=== PATIENT | female | born 1970 | race African-American/Black ===

== ENCOUNTER → 2019-12-21 14:57 | Outpatient (CLI) | payer BC, SELFPAY ==
--- NOTE | ~2019-12-21 | CT_ITS ---
EXAMINATION: CT soft tissue neck w con EXAM DATE: 12/21/2019 15:27 INDICATION: Enlarged lymph nodes. TECHNIQUE: Spiral CT of the neck was performed following intravenous injection of 75 mL Omnipaque 350 . Axial, coronal and sagittal images were reviewed. The dose-length product (DLP) for this examinat ion was 407.19 mGy-cm. The exposure was tailored according to patient size (auto mA exposure control ), and iterative reconstruction (ASIR) was used as additional dose reduction technique. There is no prior study for comparison. FINDINGS: The thyroid gland is unremarkable. The submandibular and parotid glands are symmetric. There is no cervical lymphadenopathy. There are no masses identified. The superior mediastinum is unremarkable. The airway is unremarkable. Parapharyngeal and pre-glottic fat planes are preserve d. The opacified vasculature is patent. The orbits are unremarkable. Visualized sinuses and mas toid air cells are well aerated. Unremarkable bones. There is moderate disc disease at C5-6. Other stephen mild cervical spondylosis. IMPRESSION: Unremarkable CT neck exam. Reviewed, dictated and finalized at location A. IMPRESSION: Unremarkable CT neck exam.
== END ==
PROVIDERS: PCP Internal Medicine; Visit Provider Internal Medicine
DX: R59.1 Generalized enlarged lymph nodes (principal)
CPT/HCPCS: 70491; Q9967

== ENCOUNTER 2020-05-25 07:27 | Outpatient (CLI) | payer BC, SELFPAY ==
--- NOTE | ~2020-05-25 | MM_ITS ---
EXAMINATION: MM screening elvira BI w perla HISTORY: Screening TECHNIQUE: Craniocaudal and mediolateral oblique 3-D tomosynthesis images were obtained and synthetic 2-D images were generated. CAD analysis was submitted and interpreted. COMPARISON: Comparison to multiple prior studies sequentially, with oldest reviewed study dated 09/2012. BREAST PARENCHYMAL COMPOSITION: Breast composed of scattered areas of fibroglandular density FINDINGS: There is developing focal asymmetry lower outer quadrant of the left breast. The right camryn st is stable without evidence for malignancy. IMPRESSION: 1. Developing left breast asymmetry, lower outer quadrant. 2. Additional mammographic views and possible breast ultrasound are recommended. BI-RADS Category 0: Incomplete: Needs additional imaging evaluation. Reviewed, dictated and finalized at location A. AL GIVING OFFICER IMPRESSION: 1. Developing left breast asymmetry, lower outer quadrant. 2. Additional mammographic views and possible breast ultrasound are recommended . BI-RADS Category 0: Incomplete: Needs additional imaging evaluation.
== END 2020-05-25 07:28 | disposition home or self-care (01) ==
LOC: ANHIMG 07:32
PROVIDERS: PCP Internal Medicine; Visit Provider Nurse Practitioner
DX: Z12.31 Encounter for screening mammogram for malignant neoplasm of breast (principal); R92.8 Other abnormal and inconclusive findings on diagnostic imaging of breast
CPT/HCPCS: 77063; 77067

== ENCOUNTER 2020-06-21 11:31 | Outpatient (CLI) | payer BC, SELFPAY ==
--- NOTE | ~2020-06-21 | MMUS_ITS ---
EXAMINATION: MM diagnostic mammo unilat LT, US breast LT limited HISTORY: Left breast asymmetry on screening mammogram TECHNIQUE: Additional 3-D tomosynthesis images of the left breast were performed and synthetic 2-D im ages were generated. CAD analysis was submitted and interpreted. High resolution limited left breast ultrasound was performed. COMPARISON: 05/25/2020, 05/22/2017, 04/25/2016, 04/29/2015 , 06/21/2012 FINDINGS: MAMMOGRAPHIC FINDINGS: There is a return to baseline fibroglandular appearance with spot compression of the lower left breas t. No suspicious mass, calcification, or architectural distortion are identified. ULTRASOUND: There is a 3 mm oval, circumscribed, parallel, hypoechoic mass with no posterior features or internal vascularity at the 5:00 location 2 cm from the nipple. IMPRESSION: 1. Probably benign sonographically detected left breast mass. 2. Recommend 6 month follow-up targeted left breast ultrasound. BI-RADS category 3, probably benign findings. Reviewed, dictated and finalized at location A. IRER ART OBJECTS IMPRESSION: 1. Probably benign sonographically detected left breast mass. 2. Recommend 6 month follow-up targeted left breast ultrasound. BI-RADS category 3, probably benign findings.
== END 2020-06-21 11:32 | disposition home or self-care (01) ==
LOC: ANHIMG 11:33
PROVIDERS: PCP Internal Medicine; Visit Provider Obstetrics & Gynecology Gynecology
DX: R92.8 Other abnormal and inconclusive findings on diagnostic imaging of breast (principal)
CPT/HCPCS: 76642; 77065

== ENCOUNTER → 2021-09-10 15:08 | Outpatient (CLI) | payer BC, SELFPAY ==
--- NOTE | ~2021-09-10 | US_ITS ---
EXAMINATION: US carotid duplex BI DATE: 09/10/2021 15:38 INDICATION: Carotid bruit. Carotid atherosclerosis and stenosis. TECHNIQUE: Grayscale, color Doppler, and pulsed Doppler images of the cervical carotid arteries were obtained. The degree of vessel stenosis is placed in one of the following categories: normal, <50%, 5 0-69%, >=70% but less than near-occlusion, near-occlusion, or total occlusion. Note that percent sten osis relative to normal distal artery lumen diameter is indirectly measured from velocity measurement s as described by Amilcar, et al. Radiology 2003; 229:340-346. COMPARISON: None. FINDINGS: RIGHT: The right common carotid artery (CCA) peak systolic velocity (PSV) is 94 cm/s. The right internal car otid artery (ICA) PSV is 111 cm/s. The right ICA end-diastolic velocity (EDV) is 52 cm/s. The right I CA/CCA PSV ratio is 1.2. Grayscale and color Doppler images yield an estimate of <50% diameter reduct ion from minimal plaque in the ICA. The external carotid artery (ECA) PSV is 61 cm/s. There is antegr clifton flow in the right vertebral artery. LEFT: The left CCA PSV is 115 cm/s. The left ICA PSV is 162 cm/s. The left ICA EDV is 73 cm/s. The left ICA /CCA PSV ratio is 1.4. Grayscale and color Doppler images yield an estimate of 50-69% diameter reduct ion from plaque in the ICA. The ECA PSV is 73 cm/s. There is antegrade flow in the left vertebral art aly. IMPRESSION: 1. <50% stenosis in the right internal carotid artery. 2. 50-69% stenosis in the left internal carotid artery. Reviewed, dictated and finalized at location B.
== END ==
PROVIDERS: PCP Internal Medicine; Visit Provider Internal Medicine
DX: R09.89 Other specified symptoms and signs involving the circulatory and respiratory systems (principal); I65.23 Occlusion and stenosis of bilateral carotid arteries
CPT/HCPCS: 93880

== ENCOUNTER → 2021-09-18 13:23 | Outpatient (CLI) | payer BC, SELFPAY ==
--- NOTE | ~2021-09-18 | CT_ITS ---
EXAMINATION: CTA neck DATE: 09/18/2021 14:07 INDICATION: Occlusion and stenosis of unspecified coronary artery. TECHNIQUE: Computed tomographic angiography (CTA) of the neck was performed with 100 mL Omnipaque-350 intravenous contrast. Automated exposure control and iterative reconstruction technique were employe d. The dose-length product was 532.00 mGy-cm. Maximum intensity projection 3D-reconstructions were cr eated by the technologist on a separate workstation. COMPARISON: Neck CT 12/21/2019 FINDINGS: There are no pathologically enlarged lymph nodes. The vertebral arteries are codominant. Th ere is no significant stenosis of the vertebral arteries. The cervical internal carotid arteries demo nstrate undulation of their staton, consistent with fibromuscular dysplasia. There is 0% stenosis of t he proximal right internal carotid artery relative to normal distal artery lumen diameter (NASCET cri teria). There is 0% stenosis of the proximal left internal carotid artery relative to normal distal a rtery lumen diameter. There is moderate spondylosis at C5-C6. IMPRESSION: 1. 0% stenosis of the proximal internal carotid arteries relative to normal distal artery lumen diame ters (NASCET criteria). 2. Fibromuscular dysplasia involving the internal carotid arteries. Reviewed, dictated and finalized at location A. IMPRESSION: 1. 0% stenosis of the proximal internal carotid arteries relative to normal dis saurav artery lumen diameters (NASCET criteria). 2. Fibromuscular dysplasia involving the internal carotid arteries.
[2021-09-18 13:43] LABS: Estimated Glomerular Filt Rate > 60
== END ==
PROVIDERS: PCP Internal Medicine; Visit Provider Internal Medicine
DX: I65.29 Occlusion and stenosis of unspecified carotid artery (principal); R09.89 Other specified symptoms and signs involving the circulatory and respiratory systems; I77.3 Arterial fibromuscular dysplasia
CPT/HCPCS: 70498; Q9967

== ENCOUNTER 2021-09-23 14:38 | Outpatient (CLI) | payer BC, SELFPAY ==
--- NOTE | ~2021-09-23 | CT_ITS ---
EXAMINATION: CTA chest abdomen pelvis DATE: 09/23/2021 15:06 INDICATION: Arterial fibromuscular dysplasia TECHNIQUE: Computed tomographic angiography (CTA) of the chest, abdomen, and pelvis was performed wit hout and with 100 mL Omnipaque-300 intravenous contrast. Volume-rendered 3D-reconstructions of the ao rta and large arteries were constructed by the technologist on a separate workstation. Automated expo sure control and iterative reconstruction technique were employed. The dose-length product was 1005.9 4 mGy-cm. COMPARISON: CT abdomen and pelvis dated 04/14/2018 FINDINGS: Chest: Unchanged small region of tree-in-bud opacity in the right middle lobe including a couple small calci fied pulmonary nodules likely sequela of chronic infection. No new airspace opacities, pulmonary dirk a or pleural effusion. Heart size is normal. No pericardial or pleural effusion. A few calcified left hilar lymph nodes consistent with old granulomatous disease. Thoracic aorta is normal in caliber wit h no dissection. The the arteries arising from the aortic arch similarly appear normal with no stenos is or dissection. No pathologically enlarged thoracic lymphadenopathy. Mild thoracic spondylosis. Abdomen and pelvis: Liver, gallbladder, spleen, pancreas, bilateral adrenal glands and kidneys are normal. Bowels includi ng the appendix are normal. Bladder is normal. The uterus is not identified and has likely been surgi giovanna resected. Bilateral adnexa are unremarkable. No free intraperitoneal gas or fluid. No pathologi giovanna enlarged abdominal or pelvic lymphadenopathy. Abdominal aorta is normal in caliber with no diss ection. The celiac, superior mesenteric, inferior mesenteric and bilateral renal arteries as well as the bilateral common, external and internal iliac arteries all appear normal with no dissection or si gnificant stenosis. The arteries appear relatively smooth without the beaded appearance which can be seen with fibromuscular dysplasia. Mild bilateral hip osteoarthritis. IMPRESSION: 1. Aorta and its major thoracic, abdominal and pelvic branches appear normal with no aneurysm, dissec tion or stenosis. Reviewed, dictated and finalized at location A. IMPRESSION: 1. Aorta and its major thoracic, abdominal and pelvic branches appear normal wi th no aneurysm, dissection or stenosis.
== END 2021-09-23 14:39 | disposition home or self-care (01) ==
LOC: ANHIMG 14:39
PROVIDERS: PCP Internal Medicine; Visit Provider Internal Medicine
DX: I77.3 Arterial fibromuscular dysplasia (principal)
CPT/HCPCS: 71275; 74174; Q9967

== ENCOUNTER 2022-03-05 15:37 | Outpatient (CLI) | payer BC, SELFPAY ==
--- NOTE | ~2022-03-05 | DEXA_ITS ---
Bone Density Report Name: NEERAJ TRAN Age: 51 Sex: Female Ethnicity: White Date of : 1970 Indication: postmenopausal; screening for osteoporosis; height loss; inflammatory bowel disease; asthma or emphysema; hysterectomy; Referring Provider: PRITESH DE LA CRUZ Study: Bone densitometry was performed. Exam Date: March 05, 2022 Accession number: [id number] Bone Density: Region BMD T-score Z-score Classification AP Spine(L1-L4) 1.184 1.2 2.0 Normal Femoral Neck (Left) 0.761 -0.8 0.0 Normal Total Hip (Left) 0.875 -0.6 -0.1 Normal Femoral Neck (Right) 0.805 -0.4 0.4 Normal Total Hip (Right) 0.845 -0.8 -0.3 Normal Total Hip Mean 0.860 -0.7 -0.2 Normal World Health Organization criteria for BMD impression classify patients as: Normal (T-score at or above -1.0), Osteopenia (T-score between -1.0 and -2.5), or Osteoporosis (T-score at or below -2.5). 10-year Fracture Risk: FRAX not reported because: All T-scores for Spine Total, Hip Total, Femoral Neck at or above -1.0 Clinical Information Provided by Patient: Has used the following medications: Vitamin D Has the following medical conditions: Asthma or Emphysema, Inflammatory bowel diseases, Hysterectomy Patient maximum height was 69.5 Menopause Age: 39 Drinks caffeinated beverages Onset of menses at age 14 Number of children 2 Impression: The patient has normal bone mass. Discussion: BONE DENSITY IS ABOVE THE MINIMUM DESIRABLE LEVEL AT ALL SKELETAL SITES TESTED. This patient?s bone mineral density is above the minimum desirable level (T-score -1.0 or better) at all sites measured. The patient should follow a healthful lifestyle (good nutrition with adequate calcium and vitamin D, and appropriate weight-bearing exercise). Follow-Up: Consider repeating this study in 5 years or sooner if there is some new clinical indication. Reported by: LAM on 03/05/2022 4:08:00 PM. Reviewed, dictated and finalized at location AMile CROOK
--- NOTE | ~2022-03-05 | MM_ITS ---
EXAMINATION: MM screening elvira BI w perla HISTORY: Screening TECHNIQUE: Craniocaudal and mediolateral oblique 3-D tomosynthesis images were obtained and synthetic 2-D images were generated. CAD analysis was submitted and interpreted. COMPARISON: Comparison to multiple prior studies sequentially, with oldest reviewed study dated 04/18. BREAST PARENCHYMAL COMPOSITION: Breast composed of scattered areas of fibroglandular density FINDINGS: There is no evidence of suspicious mass, calcification, or architectural distortion to sugg est malignancy in either breast. There has been no suspicious interval change. IMPRESSION: 1. No mammographic evidence of malignancy. 2. Recommend routine screening mammography in one year. BI-RADS Category 1: Negative Reviewed, dictated and finalized at location A.
== END 2022-03-05 15:38 | disposition home or self-care (01) ==
PROVIDERS: PCP Internal Medicine; Visit Provider Obstetrics & Gynecology Gynecology
DX: Z12.31 Encounter for screening mammogram for malignant neoplasm of breast (principal); Z78.0 Asymptomatic menopausal state
CPT/HCPCS: 77063; 77067; 77080

== ENCOUNTER → 2022-03-20 10:49 | Outpatient (CLI) | payer BC, SELFPAY ==
--- NOTE | ~2022-03-20 | CT_ITS ---
EXAMINATION: CTA neck DATE: 03/20/2022 11:29 INDICATION: Arterial fibromuscular dysplasia. TECHNIQUE: Computed tomographic angiography (CTA) of the neck was performed with 100 mL Omnipaque-350 intravenous contrast. Automated exposure control and iterative reconstruction technique were employe d. The dose-length product was 533.04 mGy-cm. Maximum intensity projection and volume rendered 3D-rec onstructions were created by the technologist on a separate workstation. COMPARISON: CTA neck 09/18/2021 FINDINGS: There are no pathologically enlarged lymph nodes. The vertebral arteries are codominant. There is no significant stenosis of the vertebral arteries. There is no visible plaque in the proximal internal c arotid arteries. There is 0% stenosis of the proximal right internal carotid artery relative to haydee l distal artery lumen diameter (NASCET criteria). There is 0% stenosis of the proximal left internal carotid artery relative to normal distal artery lumen diameter. There is undulation of the staton of t he cervical internal carotid arteries, consistent with fibromuscular dysplasia. There is moderate spo ndylosis at C5-C6 and mild spondylosis at other levels. IMPRESSION: 1. 0% stenosis of the proximal internal carotid arteries relative to normal distal artery lumen diame ters (NASCET criteria). 2. Fibromuscular dysplasia involving the internal carotid arteries. Reviewed, dictated and finalized at location A. IMPRESSION: 1. 0% stenosis of the proximal internal carotid arteries relative to normal dis saurav artery lumen diameters (NASCET criteria). 2. Fibromuscular dysplasia involving the internal carotid arteries.
[2022-03-20 11:08] LABS: Estimated Glomerular Filt Rate > 60
== END ==
PROVIDERS: PCP Internal Medicine
DX: I77.3 Arterial fibromuscular dysplasia (principal)
CPT/HCPCS: 70498; Q9967

== ENCOUNTER 2022-06-24 15:01 | Outpatient (CLI) | payer BC, SELFPAY ==
--- NOTE | 2022-06-29 16:37 | WPDHOLTEREM ---
Holter/Event Monitor Holter/Event Monitor Date of procedure: 06/24/22 Holter/Event Procedure: 48 Hr Holter Monitor Indications: Palpitations Conclusion: 1. 48 hour holter monitor on 06/24/22. 2. Underlying rhythm is sinus rhythm. HR range 64-152 bpm; average HR 82 bpm. HR at 152 bpm was at 05:52. 3. There are 768 premature supraventricular complexes. No supraventricular tachycardia. 4. No premature ventricular complexes. No ventricular tachycardia. 5. No sinoatrial or atrioventricular blocks. No significant pauses greater than 2 seconds. 6. Patient reports many episodes of palpitations which demonstrate sinus rhythm, HR range 76-103 bpm with PAC's in each of them.
== END 2022-06-24 15:02 | disposition home or self-care (01) ==
LOC: ANHCARD 15:01
PROVIDERS: PCP Internal Medicine; Visit Provider Internal Medicine
DX: R00.2 Palpitations (principal)
CPT/HCPCS: 93225; 93226

== ENCOUNTER 2022-08-04 14:23 | Outpatient (CLI) | payer BC, SELFPAY ==
--- NOTE | 2022-08-04 14:32 | ECHO_ITS ---
Patient Info Name: Annie Lee Age: 51 years : 1970 Gender: Female Ht: 69 in Wt: 168 lbs BSA: 1.93 m2 HR: 71 bpm BP: 129 / 82 mmHg Heart Rhythm: Sinus Rhythm Technical Quality: Fair Exam Date: 08/04/2022 2:45 PM Exam Location: [facility] Patient Status: Outpatient Admit Date: 08/04/2022 Staff Ordering Physician: Alfred Shine MD Mechanics Handyman: Yuki Sutton RDCS Attending Provider: Alfred Shine MD Referring Physician: Rl MARC; Exam Type: CA echo doppler color flow Study Info Indications R00.2 - Palpitations Complete two-dimensional, color flow and Doppler transthoracic echocardiogram is performed. Summary 1. Complete two-dimensional, color flow and Doppler transthoracic echocardiogram is performed. 2. Left ventricular chamber dimension is normal. 3. Left ventricular systolic function is normal, estimated at 60-65%. 4. The left ventricular diastolic function is abnormal. 5. E/e' 11 is mildly elevated. 6. Global longitudinal strain is normal at -18.6%. 7. No pulmonary hypertension, estimated pulmonary arterial systolic pressure is 21 mmHg. Left Ventricle E/e' 11 is mildly elevated. Global longitudinal strain is normal at -18.6%. Left ventricular chamber dimension is normal. Left ventricular systolic function is normal, estimated at 60-65%. The left ventricular diastolic function is abnormal. Right Ventricle Right ventricular systolic function is normal and with normal TAPSE 1.7 cm.. Right ventricular chamber dimension is normal. Left Atria Left atrial chamber dimension is normal. Right Atria Right atrial chamber dimension is normal. Aortic Valve The aortic valve is trileaflet. There is no aortic valve stenosis. There is no aortic valve regurgitation. Pulmonic Valve There is no pulmonic regurgitation. Mitral Valve There is no mitral valve stenosis. There is no mitral valve regurgitation. Tricuspid Valve There is no tricuspid valve regurgitation. No pulmonary hypertension, estimated pulmonary arterial systolic pressure is 21 mmHg. Pericardium/Pleural There is no pericardial effusion. Inferior Vena Cava Normal inferior vena cava with >50% collapse upon inspiration consistent with normal right atrial pressure, 5 mmHg. Aorta The aortic root size at the sinus of Valsalva is normal. Left Ventricular Outflow Tract Name Value Normal LVOT 2D LVOT Diameter 2.0 cm LVOT Doppler LVOT Peak Gradient 4 mmHg LVOT Mean Gradient 2 mmHg LVOT VTI 18 cm LVOT VTI/AV VTI Ratio 0.8 LVOT Stroke Volume 56 ml LVOT CO 3.8 l/min LVOT CI 1.9 l/min/m2 Pulmonic Valve Name Value Normal RVOT Doppler
== END 2022-08-04 14:24 | disposition home or self-care (01) ==
LOC: ANHCARD 14:24
PROVIDERS: PCP Internal Medicine; Visit Provider Internal Medicine
DX: I49.49 Other premature depolarization (principal); R00.2 Palpitations
CPT/HCPCS: 93306

== ENCOUNTER 2023-01-26 12:55 | Emergency (ER) | payer BC, SELFPAY ==
[2023-01-26] VITALS (21 sets, daily range): BP systolic 132–149; BP diastolic 62–85; PULSE 66–82; RESP 13–21; TEMP 36.3; O2SAT 99–100
--- NOTE | ~2023-01-26 | XR_ITS ---
EXAMINATION: XR chest 2V 01/26/2023 13:28 INDICATION: Left-sided chest pain PROCEDURE: 2 view chest COMPARISON: No prior studies for comparison. FINDINGS: The lungs are clear. The cardiomediastinal silhouette is within normal limits. There are no pleural effusions. There is no pneumothorax suspected. IMPRESSION: 1: NO ACUTE CARDIOPULMONARY DISEASE. Reviewed, dictated and finalized at location L.
--- NOTE | 2023-01-26 12:57 | ECG_ITS ---
Measurements Intervals Morrison Rate: 80 P: 62 IL: 187 QRS: -14 QRSD: 96 T: 65 QT: 374 QTc: 432 Interpretive Statements SINUS RHYTHM DELAYED PRECORDIAL R/S TRANSITION BASELINE ARTIFACT- I, II, AVR BORDERLINE ECG NO PREVIOUS ECG AVAILABLE FOR COMPARISON Electronically Signed On 01-26-2023 13:08:14 CDT by Rachid Begum D.O.
[2023-01-26 13:28] LABS: Alanine Aminotransferase 88 U/L (6-35); Albumin Level 4.4 g/dL (3.5-5.1); Alkaline Phosphatase 63 U/L (38-126); Anion Gap 8 mmol/L (8-16); Aspartate Amino Transferase 44 U/L (14-36); Bilirubin,Total 0.5 mg/dL (0.2-1.3); Blood Urea Nitrogen 10 mg/dL (7-17); Calcium 9.1 mg/dL (8.4-10.2); Carbon Dioxide 24 mmol/L (22-30); Chloride 103 mmol/L (98-107); Estimated CRCL calculation 76 ml/min; Estimated Glomerular Filt Rate > 60; Glucose 90 mg/dL (65-110); Lipase 222 U/L (23-300); Potassium 4.3 mmol/L (3.4-5.0); Sodium 135 mmol/L (137-145)
[2023-01-26 13:39] LABS: Troponin I < 0.012 ng/mL (0.000-0.034)
[2023-01-26] MEDS: ASPIRIN 81 MG CHEWABLE TABLET 324 MG PO (15:00)
--- NOTE | 2023-01-26 15:23 | PC.NURSE ---
Attempted IV insertion x2. Unsuccessful. Jackelyn JUÁREZ to start with US
[2023-01-26 15:43] LABS: Basophils Percent Auto 0.6 % (0.2-1.2); Eosinophils Absolute Auto 0.1 K/mm3 (0-0.3); Eosinophils Percent Auto 1.6 % (0-4.4); Hematocrit 44.6 % (37.0-47.0); Immature Granulocyte Absolute 0.01 K/mm3 (0.00-0.031); Immature Granulocyte Percent A 0.2 % (0-0.5); Lymphocytes Absolute Auto 2.09 K/mm3 (0.9-3.2); Lymphocytes Percent Auto 42.4 % (18.3-44.2); Mean Corpuscular HGB Conc 33.6 g/dl (32-36); Mean Corpuscular Hemoglobin 30.5 pg (26-34); Mean Corpuscular Volume 90.7 fl (80-100); Monocytes Absolute Auto 0.5 K/mm3 (0.1-0.6); Monocytes Percent Auto 9.1 % (2.6-8.5); Neutrophils Absolute Auto 2.3 K/mm3 (1.3-6.7); Neutrophils Percent Auto 46.1 % (45.5-73.1); Platelet Count Result 215 k/mm3 (150-375); Red Blood Count 4.92 M/mm3 (4.2-5.4); Red Cell Distribution Width 13.1 % (11.5-14.5); White Blood Count 4.9 K/mm3 (4.5-10.0)
--- NOTE | 2023-01-26 15:48 | ED.CHESTPAIN ---
HPI - Chest Pain General Chief Complaint: Chest Pain Stated Complaint: cp Time Seen by Provider: 01/26/23 15:14 History of Present Illness HPI narrative: Patient is a 52-year-old female with a history of hyperlipidemia, migraines, heart palpitations presenting with chest pain. Patient states that she was at work when she developed pain underneath her right shoulder blade that then radiated into her chest. She was sitting at her desk when the pain started. States that the pain spread throughout her entire chest so she came in for evaluation. States that she also felt short of breath. States that the pain has started to improve. No leg swelling. No recent travel. States that she also feels intermittently lightheaded. No numbness or weakness, headache, fevers, nasal congestion, cough, abdominal pain, nausea or vomiting, diarrhea. Related Data Home Medications Medication Instructions Recorded Confirmed estradiol 0.05 mg/24 hr semiweekly 1 patch transdermal 2XW 03/22/19 12/01/22 transdermal patch aspirin 81 mg tablet,delayed 81 mg PO DAILY 10/14/21 12/01/22 release (Burt Low Dose Aspirin) Allergies Allergy/AdvReac Type Severity Reaction Status Date / Time adhesive Allergy Unknown Rash Verified 11/30/22 13:08 Sulfa (Sulfonamide Allergy Unknown Swelling Verified 11/30/22 13:08 Antibiotics) Review of Systems Review of Systems: All systems reviewed & are unremarkable except as noted in HPI and below PMFSH Past Medical History Medical History Abnormal CT scan Abnormal finding of blood chemistry Achilles tendinitis of right lower extremity Adult BMI 33.0-33.9 kg/sq m Benign paroxysmal positional vertigo of right ear BMI 24.0-24.9, adult BMI 25.0-25.9,adult BMI 27.0-27.9,adult BMI 28.0-28.9,adult BMI 29.0-29.9,adult BMI 30.0-30.9,adult BMI 32.0-32.9,adult BMI 35.0-35.9,adult Borderline diabetes Bruit of right carotid artery Burn Carotid bruit Carotid stenosis Chest pain Congestion of left ear Constipation Diverticulosis Elevated LFTs Encounter for preventive health examination Encounter for routine adult health examination without abnormal findings Eustachian tube dysfunction Family history of arteriosclerotic cardiovascular disease Fatty liver Follow up GERD (gastroesophageal reflux disease) Heart palpitations Hormone replacement therapy Hormone replacement therapy (HRT) Hyperlipidemia Insomnia Irritable bowel syndrome with constipation Kidney stones Lung nodule Lymphadenopathy Mass of left side of neck Migraine Mild reactive airways disease On intermediate drug therapy Pre-diabetes Rhinitis Right upper quadrant abdominal pain SOB (shortness of breath) Syncope Syncope Thrombosed external hemorrhoid Tobacco smoke exposure Torn ligament UTI (urinary tract infection) Visual floaters Vitamin D deficiency Weight gain Family History Family History Father Diabetes mellitus Hypertension Patient's father is in good health Family history of cardiovascular disease Cerebrovascular accident Family history of diabetes mellitus in first degree relative Family history of heart disease in male family member before age 55 Mother Patient's mother is in good health Family history of hypercholesterolemia Sibling Patient's sister is in good health Family history of throat cancer, Onset Age: 50 Social History Social History Smoking status: Never smoker Second hand tobacco smoke exposure: Yes Alcohol intake: current Substance use: never Substance use type: does not use Lack of Transportation: No Lack of Food: Never True Current Housing: I Have Housing Concerned About Future Housing: No Difficulty Paying Gas/Electric Bills: No Difficulty Paying for Meds: No Currently Unemployed: YES Education: Trade/Voc
[2023-01-26 15:55] LABS: Prothrombin Time 13.1 Seconds (11.1-14.7)
[2023-01-26 15:56] LABS: Partial Thromboplastin Time 28.2 SECONDS (22.3-36.8)
[2023-01-26] MEDS: SODIUM CHLORIDE 0.9% IV 1,000 ML 999 ML IV CONT (16:03)
[2023-01-26 16:07] LABS: D Dimer 0.44 ug/mL (<0.48)
[2023-01-26 16:09] LABS: Troponin I < 0.012 ng/mL (0.000-0.034)
[2023-01-26] MEDS: KETOROLAC 15 MG/ML VIAL (*BKC) IV PUSH (16:41)
--- NOTE | 2023-01-26 19:27 | PC.NURSE ---
THis RN assumed care of patient. THis RN took patient report from MARQUITA Martines.
[2023-01-26 20:21] LABS: Troponin I < 0.012 ng/mL (0.000-0.034)
== END 2023-01-26 20:53 | disposition home or self-care (01) ==
PROVIDERS: Emergency Medicine; Emergency Provider Emergency Medicine; PCP Internal Medicine
DX: R07.89 Other chest pain (principal); E78.5 Hyperlipidemia, unspecified; E55.9 Vitamin D deficiency, unspecified; I65.29 Occlusion and stenosis of unspecified carotid artery; R73.03 Prediabetes; K21.9 Gastro-esophageal reflux disease without esophagitis; K58.1 Irritable bowel syndrome with constipation; J45.909 Unspecified asthma, uncomplicated; Z87.442 Personal history of urinary calculi; Z87.440 Personal history of urinary (tract) infections; R94.31 Abnormal electrocardiogram [ECG] [EKG]
CPT/HCPCS: 36415; 71046; 80053; 83690; 84484; 85025; 85380; 85610; 85730; 93005; 96360; 96361; 99284; A9270; J1885; J7030

== ENCOUNTER 2023-03-30 15:08 | Outpatient (CLI) | payer BC, SELFPAY ==
--- NOTE | ~2023-03-30 | MM_ITS ---
EXAMINATION: MM screening [facility] BI w perla HISTORY: Screening mammogram TECHNIQUE: Craniocaudal and mediolateral oblique 3-D tomosynthesis images were obtained and synthetic 2-D images were generated. CAD analysis was submitted and interpreted. COMPARISON: 03/05/2022, 06/21/2020, 05/25/2020, 05/22/2017 BREAST PARENCHYMAL COMPOSITION: There are scattered areas of fibroglandular density. FINDINGS: No suspicious mass, calcification, or architectural distortion are identified in either yarelis ast to suggest malignancy. There has been no suspicious interval change. IMPRESSION: 1. No mammographic evidence of malignancy. 2. Recommend routine screening mammography in one year. BI-RADS Category 1: Negative Reviewed, dictated and finalized at location A. 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
== END 2023-03-30 15:09 | disposition home or self-care (01) ==
PROVIDERS: PCP Internal Medicine; Visit Provider Obstetrics & Gynecology Gynecology
DX: Z12.31 Encounter for screening mammogram for malignant neoplasm of breast (principal)
CPT/HCPCS: 77063; 77067

== ENCOUNTER 2024-04-27 15:32 | Outpatient (CLI) | payer BC, SELFPAY ==
--- NOTE | ~2024-04-27 | MM_ITS ---
EXAMINATION: MM screening elvira BI w perla HISTORY: Screening TECHNIQUE: Craniocaudal and mediolateral oblique 3-D tomosynthesis images were obtained and synthetic 2-D images were generated. CAD analysis was submitted and interpreted. COMPARISON: Comparison to multiple prior studies sequentially, with oldest reviewed study dated 04/16. BREAST PARENCHYMAL COMPOSITION: Not dense: There are scattered areas of fibroglandular density. FINDINGS: There is no evidence of suspicious mass, calcification, or architectural distortion to sugg est malignancy in either breast. There has been no suspicious interval change. IMPRESSION: 1. No mammographic evidence of malignancy. 2. Recommend routine screening mammography in one year. BI-RADS Category 1: Negative Reviewed, dictated and finalized at location B. 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
== END 2024-04-27 15:33 | disposition home or self-care (01) ==
PROVIDERS: PCP Internal Medicine; Visit Provider Obstetrics & Gynecology Gynecology
DX: Z12.31 Encounter for screening mammogram for malignant neoplasm of breast (principal)
CPT/HCPCS: 77063; 77067

== ENCOUNTER 2025-04-30 15:55 | Outpatient (CLI) | payer BC, SELFPAY ==
--- NOTE | ~2025-04-30 | MM_ITS ---
EXAMINATION: MM screening elvira BI w perla HISTORY: Screening TECHNIQUE: Craniocaudal and mediolateral oblique 3-D tomosynthesis images were obtained and synthetic 2-D images were generated. CAD analysis was submitted and interpreted. COMPARISON: Comparison to multiple prior studies sequentially, with oldest reviewed study dated , 05/22/2017 BREAST PARENCHYMAL COMPOSITION: Not Dense: There are scattered areas of fibroglandular density. FINDINGS: There is no evidence of suspicious mass, calcification, or architectural distortion to suggest malignancy in either breast. IMPRESSION: 1. No mammographic evidence of malignancy. 2. Recommend routine screening mammography in one year. BI-RADS Category 1: Negative Reviewed, dictated and finalized at location [facility]. [facility]
== END 2025-04-30 15:56 | disposition home or self-care (01) ==
PROVIDERS: PCP Internal Medicine; Visit Provider Obstetrics & Gynecology Gynecology
DX: Z12.31 Encounter for screening mammogram for malignant neoplasm of breast (principal)
CPT/HCPCS: 77063; 77067

== ENCOUNTER 2025-05-01 16:24 | Outpatient (CLI) | payer BC, SELFPAY ==
--- NOTE | ~2025-05-01 | CT_ITS ---
EXAMINATION:CT diagnostic chest wo con DATE: 05/01/2025 16:40 INDICATION: Follow-up TECHNIQUE: Computed tomography (CT) of the chest was performed without intravenous contrast. The dose-length product (DLP) was 159.11 mGy-cm. COMPARISON: CT exam from September 232021. Note that reported follow-up for study done at outside facility with images not available for direct comparison. No report is provided. FINDINGS: Several areas of peripheral small scattered reticulonodular changes, some with tree-in-bud formations such as the anterior right upper lobe images 65 through 69 series 4. Small area of consolidative changes developing in the right middle lobe. These findings were present on the previous exam but are more advanced on today's study. The lungs are otherwise clear. No effusion or pneumothorax. Heart and great vessels appear within normal limits Remaining lung mahmood are clear. Mild degenerative changes in the bones. Para IMPRESSION: 1. See comment below. Multiple bilateral small areas of tree-in-bud formation with a small area of developing consolidation in the right middle lobe consistent with small airways mediated atypical infectious process. Other sources of noninfectious airways mediated inflammatory etiologies could have a s imilar appearance. Malignancy is least likely. 2. Other findings as above. COMMENT: Note that the outside study and report are not available for review. Correlate with that report and if the findings described on the outside study are not addressed on this report, please contact department of radiology here for addendum to this report. RECOMMENDATION: Correlate with follow-up chest CT in 3 months or sooner if clinically appropriate. Reviewed, dictated and finalized at location [facility]. [employer]PERATOR IMPRESSION: 1. See comment below. Multiple bilateral small areas of tree-in-bud formation w ith a small area of developing consolidation in the right middle lobe consisten t with small airways mediated atypical infectious process. Other sources of non infectious airways mediated inflammatory etiologies could have a similar appear ance. Malignancy is least likely. 2. Other findings as above. COMMENT: Note that the outside study and report are not available for review. Jose Manuel tucker with that report and if the findings described on the outside study ar e not addressed on this report, please contact department of radiology here for addendum to this report. RECOMMENDATION: Correlate with follow-up chest CT in 3 months or sooner if clin ically appropriate.
--- OUTSIDE RECORDS SUMMARY | 2025-05-01 18:07 | XMS_ITS | Clinical Summary ---
Author Organization [employer] [facility] lin Address [address] [facility] [place] [address] Care Team Providers Care Brineyard Supervisor Name Role Phone Unavailable Primary Care Provider Unavailabl e Social History Tobacco Use Types Packs/Day Years Used Date Smoking Tobacco: Never Assessed Comments Unknown Sex and Gender Information Value Date Recorded Sex Assigned at Not on file Legal Sex Female 9:17 AM EDT Gender Identity Not on file Sexual Orientation Not on file Plan of Treatment Not on file Medical Devices Not on file Insurance [facility]
--- OUTSIDE RECORDS SUMMARY | 2025-05-01 18:07 | XMS_ITS | Clinical Summary ---
Author Organization [facility] Building B Address [address] [address] Care Team Providers Care Terminal Press Operator Name Role Phone Alfred Shine MD Primary Care Provider [phone] Marcelino Pina MD Unavailable [phone] Davie Mckinney MD Unavailable [phone] Mogran Nguyen MD Unavailable Allergies Active Allergy Reactions Criticality Noted Date Comments Adhesive Codeine Sulfa (Sulfonamide Antibiotics) Medications linaclotide (LINZESS) 145 mcg capsule take 1 capsule by oral route every day on an empty stomach at least 30 minutes before 1st meal of the day 0 0 6 Active atorvastatin (LIPITOR) 20 mg tablet take 1 tablet by oral route every day 0 0 6 Active fluticasone (FLONASE) 50 mcg/actuation nasal spray inhale 2 spray by intranasal route every day in each nostril 0 spray 0 6 Active promethazine (PHENERGAN) 25 mg tablet take 1 tablet by oral route every 4 - 6 hours as needed 0 0 6 Active ergocalciferol (VITAMIN D2) 50,000 unit capsule take 1 capsule by oral route every week 0 0 6 Active albuterol HFA (PROVENTIL HFA,VENTOLIN HFA,PROAIR HFA) 90 mcg/actuation inhaler 2 Active Nurtec ODT tablet,disintegr ating 2 Active Wegovy 2.4 mg/0.75 mL auto-injector 2 Active Quviviq 25 mg tablet Take 1 tablet (25 mg total) by mouth nightly 2 Active metoprolol XL (TOPROL-XL) 25 mg extended release tablet Take 0.5 tablets (12.5 mg total) by mouth daily [address] (PROTONIX) 40 mg EC tablet Take 1 tablet (40 mg total) by mouth every morning 4 Active estradioL 0.75 mg/0.75 gram (0.1%) gel in packet APPLY 1 APPLICATION ONTO THE THIGH ONCE DAILY 4 Active Imvexxy Maintenance Pack 10 mcg insert vaginal insert INSERT 1 VAGINALLY AT BEDTIME TWICE A WEEK 4 Active Active Problems Problem Noted Date Diagnosed Date Lung nodule 10/29/2022 Arterial fibromuscular dysplasia 10/08/2021 Assessment & Plan (11/17/2023 4:25 PM CDT): No surgical or procedural intervention is indicated at this time as patient continues to be asymptomatic. Will have patient follow-up in 1 year with repeat bilateral carotid artery duplex. Patient notified to contact our office if she experiences symptoms of stroke, TIA, focal neurological deficits in the meantime- as this would warrant intervention Assessment & Plan (10/29/2022 12:05 PM CDT): Confirmed on CTA of the neck most recently. Patient fortunately remains asymptomatic. Patient to continue aspirin regimen. Considering patient is relatively new diagnosis will have patient scheduled for CTA of the head to rule out cerebral aneurysm. I will call the patient with the results. Patient to follow-up in the office in 1 year with repeat carotid duplex. Case discussed with Dr. Kevin Pina Assessment & Plan (10/08/2022 4:29 PM CDT): History of fibromuscular dysplasia on outside CT, however no findings on most recent ultrasound. Will proceed CTA of the carotids and head for further evaluation. Follow-up in the office in 2 weeks Assessment & Plan (03/27/2022 8:42 AM GAS REGULATOR REPAIRER): Impression: Patient has a history of fibromuscular dysplasia. Follow-up CT scan performed at an outside facility shows no significant stenosis to bilateral internal carotid arteries. Patient is asymptomatic. Plan: Continue ongoing risk factor modifications. Patient to follow-up in 6 months for re-evaluation with carotid duplex. Assessment & Plan (10/08/2021 1:18 PM CDT): Patient has incidental finding of presumably fibromuscular dysplasia given angiographic findings on CT angiogram. Patient remains asymptomatic therefore no indication to proceed with interventional therapy. Have recommended daily anti-platelet therapy. Follow-up [address] angiogram. Previous imaging also shows normal appearing visceral and renal arteries. Asymptomatic lower extremities. Mixed hyperlipidemia 10/08/2021 Assessment & Plan (03/27/2022 9:56 AM GAS REGULATOR REPAIRER): Impression: Chronic stable hyperlipidemia, controlled with statin therapy. Plan: Continue statin therapy as per primary care provider. Assessment & Plan (10/08/2021 1:19 PM CDT): Hyperlipidemia chronic and controlled. Continue atorvastatin. Difficulty sleeping 02/24/2016 Overview (08/20/2016): Sleeping difficulty Migraine without aura and responsive to treatmen t 02/24/2016 Overview (08/20/2016): Chronic migraine without aura without status migrainosus, not intractable Assessment & Plan (03/27/2022 9:56 AM GAS REGULATOR REPAIRER): Impression: Patient has chronic migraine and is currently controlled medication. Plan: Continue care as per Neurology Assessment & Plan (10/08/2021 1:19 PM CDT): Migraine chronic and controlled problem. Has been seen evaluated by Neurology continue current medical therapy. Assessment & Plan (09/06/2019 1:44 PM CDT): Remains well controlled with Aimovig 70 mg Continue current treatment Needes 3-4 doses excedrin for acute treatment week prior to injection, but not interested in dose/med adjustment and happy with management. Continue efforts to stay hydrated, exercise, get sleep Call if change/concern 1 year follow up otherwise Assessment & Plan (10/25/2018 4:12 PM CDT): Remains well controlled on Aimovig Happy with PRN excedrin a few days per month (usually week prior to Aimovig injection). Call if changes/concerns can do yearly follow-up for refills or sooner if change. Assessment & Plan (04/22/2018 4:09 PM GAS REGULATOR REPAIRER): Headaches markedly improved on Aimovig - needs excedrin migraine perhaps twice monthly and that works. Happy with current control. Continue aimovig 70 monthly Call with issues, return in 3-6 months otherwise. Encounters Date Type Department Care Team Description 02/28/2025 Telephone Radiology 1 [place] [address] Viki Mckeon PA 02/26/2025 7:31 AM CDT - 02/26/2025 11:59 PM CDT Hospital Encounter [facility] [address] [place] [id number] Arterial fibromuscular dysplasia Discharge Disposition: Discharge to home or self care 02/01/2025 Orders Only [facility] Neuro Interventional Radiology [address] [place] [address] Loni Coulter Arterial fibromuscular dysplasia (Primary Dx) from Last 3 Months Surgical History Surgery Date Site/Laterality Comments CYST REMOVAL cyst removal KIDNEY STONE SURGERY Kidney stone removal OTHER SURGICAL HISTORY torn ligament in ankle HYSTERECTOMY Hysterectomy Medical History Medical History Date Comments Migraine Family History Medical History Relation Name Comments Diabetes Brother Diabetes mellit us; Diabetes Father Diabetes mellit us; Heart disease Father Heart disease; Diabetes Sister 1 Diabetes mellit us; Asthma Sister 2 Asthma; Relation Name Status Comments Brother Father Alive Mother Alive Sister 1 Alive Sister 2 Alive Social History Tobacco Use Types Packs/Day Years Used Date Smoking Tobacco: Never Passive Smoke Exposure: Never Smokeless Tobacco: Never Tobacco Cessation:Counseling Given: Not Answered Alcohol Use Standard Drinks/Week Comments Yes 0 (1 standard drink = 0.6 oz pur e alcohol) AUDIT-C Answer Date Recorded Q1: How often do you have a drink containing alc ohol? Monthly or less 01/13/2024 Q2: How many drinks containi ng alcohol do you have on a typical day when you are drinking? 1 or 2 01/13/2024 Frequency of Binge Drinking Not on file 12/16 Comments No Sex and Gender Information Value Date Recorded Sex Assigned at Not on file Legal Sex Female 4:14 AM GAS REGULATOR REPAIRER Gender Identity Not on file Sexual Orientation Not on file Last Filed Vital Signs Vital Sign Reading Time Taken Comments Blood Pressure 138/84 01/13/2024 1:39 PM CDT Pulse 71 01/13/2024 1:39 PM CDT Temperature 36.8 C (98.3 F) 01/13/2024 1:39 PM CDT Respiratory Rate 16 10/25/2018 3:58 PM CDT Oxygen Saturation 98% 09/08/2016 8:03 PM CDT Inhaled Oxygen Concentration - - Weight 74.8 kg (165 lb) 02/24/2024 1:11 PM CDT p t reported Height 175.3 cm (5' 9) 01/13/2024 1:39 PM CDT Body Mass Index 24.37 01/13/2024 1:39 PM CDT Plan of Treatment Health Maintenance Due Date Last Done Comments Breast Cancer Screening-Mammogram 1971 Colon Cancer Screening-Colonoscopy 1971 Depression Screening 1971 Hepatitis C Screening 1971 DTaP/Tdap/Td Vaccine (1 - Tdap) 10/19/1982 Hepatitis B Screening 10/19/1989 Regular Well Visit/Exam 18-64 10/19/1989 Zoster Vaccine (1 of 2) 10/19/2021 Influenza Vaccine (#1) 2025 Pneumococcal vaccine <65 Aged Out No longer eligible based on patient's age to complete this topic Procedures Procedure Name Priority Date/Time Associated Diagnosis Comments CTA HEAD NECK W WO CONTRAST Schedule Routine, Read Routine (OP Routine) 02/26/2025 8:29 AM CDT Arterial fibromuscular dysplasia from Last 3 Months Results * CTA Head Neck W WO Contrast (02/26/2025 8:29 AM CDT) Anatomical Region Laterality Modality Head and Neck N/A Computed Tomogra phy 02/26/2025 2:34 PM CDT Impressions 02/26/2025 2:48 PM CDT 1. Unchanged moderate multifocal luminal beading with moderate stenoses of both internal carotid arteries. Unchanged mild luminal beading with no significant stenosis of the vertebral arteries. Findings are in keeping with fibromuscular dysplasia. 2. New cluster of tree-in-bud nodularity in the anterior left upper lobe and increased cluster of tree-in-bud nodularity in the right upper lobe. Findings are most compatible with an atypical infectious process such as an atypical mycobacterial infection. Recommend CT chest in 3 months for interval follow-up. Recommend follow up of the Incidental bilateral upper lobe tree-in-bud nodularity Additional Imaging in [address] chest without contrast. Dictated by: Stuart Fischer MD The radiology attending physician has personally reviewed this study, and had reviewed and/or edited this written report and agrees with it. Electronically signed by: Moe Kirkland M.D. Narrative 02/26/2025 2:48 PM CDT EXAMINATION: 1. Computed tomography angiography (CTA) of the head without and with contrast 2. Computed tomography angiography (CTA) of the neck with contrast HISTORY: Fibromuscular dysplasia TECHNIQUE: CT of the head was performed with images acquired from skull base to vertex without intravenous contrast. Computed tomographic angiography was obtained from the aortic arch to the vertex following the uneventful administration of intravenous contrast. 3D images of the CTA were generated on a dedicated workstation/client server developer. Contrast information: 90 mL Optiray-350 IV COMPARISON: CTA head and neck 01/20/2024 FINDINGS: HEAD: There is no acute intracranial hemorrhage. Ventricles are of normal size and morphology. No mass effect or midline shift is present. The betancourt-white matter differentiation is normal. The visualized portions of the orbits are normal. The visualized portions of the mastoids are normal. The visualized portions of the paranasal sinuses are normal. No fractures are identified. NECK: Scattered subcentimeter lymph nodes are seen in the neck. None are pathologically enlarged. The muscles of the neck are normal. Fascial planes are preserved and the deep spaces of the neck are normal. The visualized airway is widely patent. Partially evaluated tree-in-bud nodularity in the right upper lobe, which was also partially imaged on the prior examination but with the nodularity increase in size (series 11, image 745). Clustered tree-in-bud nodularity in the left anterior upper lobe, which appears new from prior (series 11, image 684). Odgl-nq-zuczrutl degenerative changes of the cervical spine, most pronounced at C5-C6 where there is at least moderate canal stenosis. No aggressive osseous lesion. CTA: The visualized aortic arch appears normal with normal configuration of the great vessels. The innominate artery and both subclavian arteries are normal in course and caliber. The common carotid arteries are normal in course and caliber with normal carotid bifurcations bilaterally. There is multifocal luminal beading of both internal carotid arteries, similar to prior, with up to moderate stenosis. 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 The anterior and middle cerebral arteries are normal. There is mild luminal irregularity and beading of both vertebral arteries without significant stenosis, most conspicuous of the V2 segments at C3-C4. The basilar artery is normal in caliber. The posterior cerebral arteries are normal. There is no aneurysm or vascular malformation identified. Procedure Note Moe Kirkland MD - 02/26/2025 EXAMINATION: 1. Computed tomography angiography (CTA) of the head without and with contrast 2. Computed tomography angiography (CTA) of the neck with contrast HISTORY: Fibromuscular dysplasia TECHNIQUE: CT of the head was performed with images acquired from skull base to vertex without intravenous contrast. Computed tomographic angiography was obtained from the aortic arch to the vertex following the uneventful administration of intravenous contrast. 3D images of the CTA were generated on a dedicated workstation/client server developer. Contrast information: 90 mL Optiray-350 IV COMPARISON: CTA head and neck 01/20/2024 FINDINGS: HEAD: There is no acute intracranial hemorrhage. Ventricles are of normal size and morphology. No mass effect or midline shift is present. The betancourt-white matter differentiation is normal. The visualized portions of the orbits are normal. The visualized portions of the mastoids are normal. The visualized portions of the paranasal sinuses are normal. No fractures are identified. NECK: Scattered subcentimeter lymph nodes are seen in the neck. None are pathologically enlarged. The muscles of the neck are normal. Fascial planes are preserved and the deep spaces of the neck are normal. The visualized airway is widely patent. Partially evaluated tree-in-bud nodularity in the right upper lobe, which was also partially imaged on the prior examination but with the nodularity increase in size (series 11, image 745). Clustered tree-in-bud nodularity in the left anterior upper lobe, which appears new from prior (series 11, image 684). Qzgy-wf-zuiakpwi degenerative changes of the cervical spine, most pronounced at C5-C6 where there is at least moderate canal stenosis. No aggressive osseous lesion. CTA: The visualized aortic arch appears normal with normal configuration of the great vessels. The innominate artery and both subclavian arteries are normal in course and caliber. The common carotid arteries are normal in course and caliber with normal carotid bifurcations bilaterally. There is multifocal luminal beading of both internal carotid arteries, similar to prior, with up to moderate stenosis. 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 The anterior and middle cerebral arteries are normal. There is mild luminal irregularity and beading of both vertebral arteries without significant stenosis, most conspicuous of the V2 segments at C3-C4. The basilar artery is normal in caliber. The posterior cerebral arteries are normal. There is no aneurysm or vascular malformation identified. IMPRESSION: 1. Unchanged moderate multifocal luminal beading with moderate stenoses of both internal carotid arteries. Unchanged mild luminal beading with no significant stenosis of the vertebral arteries. Findings are in keeping with fibromuscular dysplasia. 2. New cluster of tree-in-bud nodularity in the anterior left upper lobe and increased cluster of tree-in-bud nodularity in the right upper lobe. Findings are most compatible with an atypical infectious process such as an atypical mycobacterial infection. Recommend CT chest in 3 months for interval follow-up. Recommend follow up of the Incidental bilateral upper lobe tree-in-bud nodularity Additional Imaging in [address] chest without contrast. Dictated by: Stuart Fischer MD The radiology attending physician has personally reviewed this study, and had reviewed and/or edited this written report and agrees with it. Electronically signed by: Moe Kirkland M.D. Morgan Nguyen MD IMG CT PROCEDURES Fin al Result from Last 3 Months Insurance ANTHEM ACCESS ANTHEM ACCESS Care Teams Terminal Press Operator Relationship Specialty Start Date End Date Alfred Shine MD PCP - General 08/14/16 Marcelino Pina MD [address] [place] [address] Surgeon Vascular Surgery 10/05/22 Davie Mckinney MD [address] [place] [address] Surgeon Vascular Surgery 01/13/24 Morgan Nguyen MD [address] [facility] [place] [address] Consulting Physician Radiology 02/10/24
--- OUTSIDE RECORDS SUMMARY | 2025-05-01 18:07 | XMS_ITS | Clinical Summary ---
Author Organization [facility] Address [address] [place] [address] Care Team Providers Care Slate Trimmer Name Role Phone Alfred Shine MD Primary Care Provider [phone] Source Comments [facility],non-owned Affiliates and Associated Physician Practices is amultiple site organization consisting of ambulatory clinics and hospital sitesin [place], [place], [place] and [place]. This disclosure is being madepursuant to the Care Everywhere program and may not contain all information available regarding this patient. Last updated 18.[facility] [employer] Allergies Active Allergy Reactions Criticality Noted Date Comments Adhesive Sensitivity 01/27/2012 SKIN IRRITATION Aspirin Buffered 01/27/2012 IRRITATES STOMACH Sulfa Drugs 01/27/2012 SWELLING OF LIPS, RASH Medications * Be aware that medications may not be up to date on this document. Alwaysverify current medications with the patient. oxycodone-aceta minophen (PERCOCET) 5-325 MG tablet Take 1 Tab by mouth every 4 hours as needed. Active hydrocodone-nivia taminophen (VICODIN) 5-500 MG tablet Take 1 Tab by mouth every 4 hours as needed. Active amitriptyline (ELAVIL) 10 MG tabletIndicatio ns:Migraine Take 10 mg by mouth at bedtime. Indications: Migraine Headache Active oxycodone-aceta minophen (PERCOCET) 5-325 MG tablet Take 1 Tab by mouth every 4 hours as needed. 60 Tab 0 02/02/2012 Active docusate sodium (COLACE) 100 MG capsule Take 1 Cap by mouth 2 times daily. 60 Cap 0 02/02/2012 Active docusate sodium (COLACE) 100 MG capsule Take 1 Cap by mouth 2 times daily. 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 Gender Identity Not on file Sexual Orientation Not on file Last Filed Vital Signs Vital Sign Reading Time Taken Comments Blood Pressure 138/91 02/02/2012 1:00 PM CDT Pulse 113 02/02/2012 1:00 PM CDT Temperature 37 C (98.6 F) 02/02/2012 1:00 PM CDT Respiratory Rate 18 02/02/2012 1:00 PM CDT Oxygen Saturation 100% 02/02/2012 1:00 PM CDT Inhaled Oxygen Concentration - - Weight 95.7 kg (211 lb) 02/01/2012 10:10 AM CDT Height 175.3 cm (5' 9) 02/01/2012 10:10 AM CDT Body Mass Index 31.16 02/01/2012 10:10 AM CDT Plan of Treatment Health Maintenance Due Date Last Done Comments COLOGUARD (AGES 45-75) - COL ON CA SCREENING 1971 COLON MONITORING 1971 COLONOSCOPY - COLON CA SCREENING 1971 CT COLONOGRAPHY - COLON CA SCREENING 1971 Colorectal Cancer Screening 1971 FIT - COLON CA SCREENING 1971 FLEX SIG - COLON CA SCREENING 1971 LIPID TESTING 1971 MAMMOGRAM 1971 HIV SCREENING 10/19/1986 HEPATITIS C SCREENING 10/15/1989 DTAP/TDAP/TD VACCINES (1 - Tdap) 10/19/1990 HEPATITIS B VACCINE (1 of 3 - 19+ 3-dose series) 10/19/1990 PNEUMOCOCCAL VACCINE 50+ (1 of 1 - PCV) 10/19/2021 ZOSTER VACCINE (1 of 2) 10/19/2021 DEPRESSION SCREENING 05/17/2024 COVID-19 VACCINE ( - 2024-2 6 season) 2025 INFLUENZA VACCINE (#1) 2025 HIB VACCINE Aged Out No longer eligi ble based on patient's age to complete this topic HPV VACCINE Aged Out No longer eligi ble based on patient's age to complete this topic MENINGOCOCCAL (Group B) VACC INE SHARED DECISION-MAKING Aged Out No longer eligibl e based on patient's age to complete this topic MENINGOCOCCAL GROUPS A/C/Y/W VACCINE Aged Out No longer eligible b ased on patient's age to complete this topic Advance Directives * FULL RESUSCITATION (Latest Code Status on File) Date Activated Date Inactivated Comments 02/01/2012 6:27 PM 02/02/2012 5:31 PM Care Teams Slate Trimmer Relationship Specialty Start Date End Date Alfred Shine MD [address] [place] [address] PCP - General 01/27/12
== END 2025-05-01 16:25 | disposition home or self-care (01) ==
PROVIDERS: PCP Internal Medicine; Visit Provider Internal Medicine
DX: R93.89 Abnormal findings on diagnostic imaging of other specified body structures (principal); Z86.19 Personal history of other infectious and parasitic diseases; R91.1 Solitary pulmonary nodule
CPT/HCPCS: 71250